=== PATIENT | female | born 1950 | race Caucasian/White ===

== ENCOUNTER 2016-04-29 14:12 | Emergency (ER) | payer MEDICARE, MEDICAID ==
[~2016-04-29 14:12] MED LIST: ACIDOPHILUS CAP1 TAB PO; ACIDOPHILUS-PE1 EACH PO; ADVAIR 2501 DISK W/D IH; AMBIEN5 MG PO; ANTIVERT12.5 MG PO; ARTIFICIAL TEAR15 M2 OP; ASPIR 8181 MG PO; ASPIR-TRIN325 M2 PO; ATIVAN0.5 MG PO; ATORVASTATIN CA40 MG PO; CALCIUM + D T1 UDTAB PO; CALCIUM + VITA1 EAC1 PO; CALCIUM 1,0001 EACH PO; CALCIUM500 MG PO; CIPRO500 M1 PO; COLACE100 MG PO; COUMADIN10 MG PO; COUMADIN5 M1 PO; COUMADIN7.5 MG PO; CRESTOR5 MG/TAB PO; CULTURELLE1 CA1 PO; CYMBALTA30 MG PO; DESIPRAMINE PO; DOXYCYCLINE HY100 M3 PO; DOXYCYCLINE HY100 M5 PO; DUONEB 2.5-0.5 M3 ML IH; FISH OIL 1,01 CAP.EC PO; FLUDROCORTISON0.1 MG PO; FLUOCINONIDE15 G1 TP; FOSAMAX70 MG PO; H PO; IMODIUM A-D2 M1 PO; IMODIUM A-D2 MG PO; ISOPTO TEARS15 ML OP; K-DUR20 MEQ/TAB PO; KEFLEX500 M1 PO; KEFLEX500 M4 PO; KEPPRA250 MG PO; LEVETIRACETAM1000 MG PO; LOVASTATIN40 MG PO; LOVENOX100 MG/ SQ; LYRICA50 MG PO; MAGIC MOUTH WASH SSP; MECLIZINE HCL12.5 MG PO; MELADOX3 M1 PO; MICRO-K8 MEQ PO; MIRALAX17 G2 PO; MOBIC7.5 M2 PO; NICODERM14 MG/PAT1 TD; NORCO 10/3251 TA1 PO; NORCO 5/325 TAB1 TAB PO; NORCO 5/3251 TA2 PO; OXCARBAZEPINE150 MG PO; OXYBUTYNIN CHLOR5 M2 PO; PAROXETINE HCL10 M1 PO; PERCOCET 5-3251 EACH PO; PERCOCET 5MG/AP1 TA1 PO; POLYETHYLENE G255 GM PO; POTASSIUM CHLO10 ME2 PO; POTASSIUM CHLO10 MEQ PO; PRINIVIL10 MG PO; PROCHLORPERAZIN10 MG PO; PROLIA60 MG/1 M1 SQ; SEPTRA 80/400 T1 TAB PO; SEPTRA DS TABLE1 TAB PO; SERTRALINE HCL50 MG PO; SULFAMYLON60 GM TOP; SYMBICORT 160-1 PUFF INH; SYMBICORT 16010.2 GM IH; SYSTANE 0.3-0.4%1 EA OP; TRIAMCINOLONE A15 GM TP; TRIAMTERENE PO; TRILEPTAL150 MG PO; TRILEPTAL300 M1 PO; TYLENOL325 M1 PO; TYLENOL325 M2 PO; TYLENOL325 MG PO; TYLENOL500 MG PO; ULTRAM50 MG PO; VIMPAT100 MG PO; VIMPAT150 MG PO; VIMPAT200 MG PO; VIMPAT50 MG PO; VITAMIN D-1000 UNIT/ PO; VITAMIN D1000 UNI3 PO; VOLTAREN GEL 1100 G1 TOP; WATER PILL; WELCHOL3.75 GM PO; ZOFRAN4 M1 PO; ZOFRAN4 MG PO; ZOFRAN8 MG PO; ZOLOFT50 MG PO
[2016-04-29] MEDS ORDERED: MAXZIDE 37.5 M1 EAC1 PO (14:21)
[2016-04-29] MEDS ORDERED: ASPIRIN EC81 MG PO (14:22)
[2016-04-29] MEDS ORDERED: IBUPROFEN200 M2 PO (14:22)
[2016-04-29] MEDS ORDERED: MIRALAX17 G2 PO (15:10)
[2016-04-29] MEDS ORDERED: ULTRAM50 M1 PO (15:10)
== END 2016-04-29 15:16 ==
LOC: EDMED 14:12
DX: R07.89 Other chest pain (principal); F17.210 Nicotine dependence, cigarettes, uncomplicated; E78.00 Pure hypercholesterolemia, unspecified